=== PATIENT | male | born 1950 | race Caucasian/White ===

== ENCOUNTER → 2018-10-11 | Outpatient (CLI) | payer OTHER ==
--- NOTE | 2018-10-13 12:44 | P ---
[facility] [place] [address] PROCEDURE REPORT Name: KATIE EID [id number] Admission: 10/11/18 Attend Phys: Tristan Dickson MD Discharge: Date of : 50 Report #: [id number] THIS REPORT FOR: //name// CC: BENJAMIN Dickson PROCEDURE: Small bowel capsule study. BRIEF HISTORY: The patient is a 68-year-old male with a history of ulceration of the ileocecal valve. He has had recent increased symptoms, raising the possibility of inflammatory bowel disease. Small bowel capsule study was recommended to exclude small bowel Crohn disease. PREOPERATIVE DIAGNOSIS: Colonic ulcers, possibly representing Crohn's disease. POSTOPERATIVE DIAGNOSES: 1. Multiple benign-appearing gastric polyps, previously noted. 2. Normal small bowel study. DESCRIPTION OF PROCEDURE: The patient presented to the GI lab and swallowed the M2 capsule per protocol. The data was collected and reviewed. As the scope passed to the stomach, multiple gastric polyps were seen. He has had previous upper endoscopic examination. These polyps have been noted on those exams and were felt to be stable. The capsule passed into the small bowel and the small bowel transit time was 4 hours and 42 minutes. Examination of the images from the small bowel revealed normal mucosa throughout. There was no evidence of ulcerations or erosive changes to suggest Crohn disease. The capsule did pass into the colon. This is a negative study of the small bowel. There was no evidence of small bowel Crohn disease on this study. RECOMMENDATIONS: The patient had previously been given a script for budesonide, which he will complete. He will follow up in the office after completion of his course of budesonide. <ELECTRONICALLY SIGNED> By: Tristan Dickson MD 10/13/18 [id number] Tristan Dickson MD /nt
== END | disposition home or self-care (01) ==
LOC: GI 06:26
DX: K31.7 Polyp of stomach and duodenum (principal)